=== PATIENT | female | born 1980 | race Caucasian/White ===

== ENCOUNTER 2019-11-26 09:30 | Inpatient (IN) | payer OTHER ==
[2019-11-19 12:14] VITALS: BMI 41.5
[~2019-11-26 09:30] MED LIST: BUPIVACAINE HCL/PF 0.25% (2.5MG/ML) 10 ML VIAL IJ ONE
[2019-11-26] MEDS ORDERED: ROCURONIUM BROMIDE 50 MG/5 ML SYRINGE ONE (14:11)
[2019-11-26] MEDS ORDERED: GLYCOPYRROLATE 0.2 MG/1 ML VIAL ONE (14:11)
[2019-11-26] MEDS ORDERED: fentaNYL CITRATE 250 MCG/5 ML VIAL ONE (14:11)
[2019-11-26] MEDS ORDERED: MIDAZOLAM HCL 2 MG/2 ML SINGLE DOSE VIAL ONE ×2 (14:11→14:12)
[2019-11-26] MEDS ORDERED: NEOSTIGMINE METHYLSULFATE 0.5 MG/ML - 10 ML MDV ONE ×2 (14:11→16:34)
[2019-11-26] MEDS ORDERED: BUPIVACAINE HCL/PF 0.5% (5 MG/ML) 30 ML VIAL IJ ONE (14:12)
[2019-11-26] MEDS ORDERED: BUPIVACAINE HCL/PF 2.5 MG/ML - 30 ML VIAL IJ ONE (14:12)
[2019-11-26] MEDS ORDERED: DESFLURANE GAS 240 ML BOTTLE IH ONE (15:31)
[2019-11-26] MEDS ORDERED: ONDANSETRON 4 MG/2 ML VIAL IVPUSH PRN (15:32)
[2019-11-26] MEDS ORDERED: ACETAMINOPHEN 1000 MG/100 ML VIAL (NON FORMULARY) IVPB ONE (15:32)
[2019-11-26] MEDS ORDERED: EPHEDRINE SULFATE/0.9% NACL/PF 50 MG/10 ML SYRINGE NR ONE (15:38)
[2019-11-26] MEDS ORDERED: LACTATED RINGERS SOLUTION 1,000 ML IV SCH (15:45)
[2019-11-26] MEDS ORDERED: HYDROmorphone HCL CARPU-JECT 1 MG/1 ML DISP.SYRIN IVPB PRN ×2 (16:38→16:39)
[2019-11-26] MEDS ORDERED: ACETAMINOPHEN INJECTION 100 ML IVPB ONE (16:39)
--- NOTE | 2019-11-26 16:44 | OP ---
Operative Note - Note: Operative Date: 11/26/19 Pre-Operative Diagnosis: Morbid Obesity. Sleep Apnea. Hypertension Operation: Laparoscopic Vertical Sleeve Gastrectomy. Wedge biopsy of left lobe of liver. Diagnostic Laparoscopy Findings: Greater curve sleeve gastrectomy performed with #[address] Wedge biopsy performed on enlarged left lobe of liver Post-Operative Diagnosis: Same as Pre-op (Hepatomegaly) Surgeon: Marcin Schafer Data Analysis Intern: Paulo Ricks Anesthesia: General Specimens Removed: Greater curve of stomach. Wedge biopsy of left lobe of liver Estimated Blood Loss (mls): 50 Operative Report Dictated: Yes
[2019-11-26] MEDS ORDERED: SODIUM CHLORIDE 1,000 ML IV SCH (16:45)
[2019-11-26] MEDS: FAMOTIDINE 20 MG/50 ML IVPB 20 MG/50 ML MG IVPB SCH ×2 (16:50→21:56)
[2019-11-26] MEDS ORDERED: METOPROLOL TARTRATE 5 MG/5 ML VIAL ONE (17:23)
[2019-11-26] MEDS ORDERED: ONDANSETRON 4 MG/2 ML VIAL ONE (17:42)
[2019-11-26] MEDS ORDERED: hydrALAZINE HCL 20 MG/ML VIAL ONE (17:43)
[2019-11-26 17:59] LABS: HEMATOCRIT 40.3 % (32.4-45.2); HEMOGLOBIN 13.5 GM/dl (10.7-15.3); MCH 30.2 pg (25.7-33.7); MCHC 33.5 g/dl (32.0-36.0); MEAN CELL VOLUME 90.1 fl (80-96); MEAN PLT VOLUME 8.8 fl (7.5-11.1); PLATELET COUNT 385 K/MM3 (134-434); RBC 4.48 M/mm3 (3.60-5.2); RDW 12.3 % (11.6-15.6); WHITE BLOOD COUNT 15.3 K/mm3 (4.0-10.8)
[2019-11-26] MEDS ORDERED: hydrALAZINE HCL 20 MG/ML VIAL IVPUSH SCH (18:00)
[2019-11-26 18:12] LABS: ALBUMIN 3.5 g/dl (3.4-5.0); BILIRUBIN,TOTAL 0.6 mg/dl (0.2-1); CALCIUM 8.5 mg/dl (8.5-10); CREATININE 0.9 mg/dl (0.55-1.3); POTASSIUM 3.9 mmol/L (3.5-5.1)
[2019-11-26] MEDS ORDERED: METOCLOPRAMIDE HCL INJECTION 10 MG/2 ML VIAL ONE (18:24)
[2019-11-26] MEDS: METOCLOPRAMIDE HCL INJECTION 10 MG/2 ML VIAL IVPUSH SCH ×2 (18:25→21:56)
[2019-11-27] MEDS: METOCLOPRAMIDE HCL INJECTION 10 MG/2 ML VIAL IVPUSH SCH ×2 (05:13→10:29)
[2019-11-27 07:53] LABS: HEMATOCRIT 41.5 % (32.4-45.2); HEMOGLOBIN 13.9 GM/dl (10.7-15.3); MCH 30.1 pg (25.7-33.7); MCHC 33.5 g/dl (32.0-36.0); MEAN CELL VOLUME 89.8 fl (80-96); MEAN PLT VOLUME 9.2 fl (7.5-11.1); PLATELET COUNT 415 K/MM3 (134-434); RBC 4.62 M/mm3 (3.60-5.2); WHITE BLOOD COUNT 14.1 K/mm3 (4.0-10.8)
[2019-11-27 08:09] LABS: ALBUMIN 3.8 g/dl (3.4-5.0); BILIRUBIN,TOTAL 0.8 mg/dl (0.2-1); CALCIUM 9.2 mg/dl (8.5-10); CREATININE 0.8 mg/dl (0.55-1.3); POTASSIUM 4.1 mmol/L (3.5-5.1); TOT PROT 7.4 g/dl (6.4-8.2)
--- NOTE | 2019-11-27 08:58 | DS ---
Physical Exam: SUBJECTIVE: Patient seen and examined OBJECTIVE: Vital Signs Temperature 98.7 F 11/27/19 06:00 Pulse Rate 89 11/27/19 06:00 Respiratory Rate 18 11/27/19 06:00 Blood Pressure 148/82 11/27/19 06:00 O2 Sat by Pulse Oximetry (%) 95 11/27/19 06:00 PHYSICAL EXAM GENERAL: The patient is awake, alert, and fully oriented, in no acute distress. HEAD: Normal with no signs of trauma. EYES: PERRL, extraocular movements intact, sclera anicteric, conjunctiva clear. ENT: Ears normal, nares patent, oropharynx clear without exudates, moist mucous membranes. NECK: Trachea midline, full range of motion, supple. LUNGS: breathing comfortably no accessory muscle use. ABDOMEN: Soft,mild diffuse tenderness, nondistended, incisions are clean no erythema, no guarding, no rebound, no hepatosplenomegaly, no masses. EXTREMITIES: warm, well-perfused, no edema. NEUROLOGICAL: Cranial nerves II through XII grossly intact. Normal speech, gait not observed. PSYCH: Normal mood, normal affect. SKIN: Warm, dry, normal turgor, no rashes or lesions noted. LABS CBC,CMP WBC 14.1 K/mm3 (4.0-10.8) H 11/27/19 07:20 RBC 4.62 M/mm3 (3.60-5.2) 11/27/19 07:20 Hgb 13.9 GM/dl (10.7-15.3) 11/27/19 07:20 Hct 41.5 % (32.4-45.2) 11/27/19 07:20 MCV 89.8 fl (80-96) 11/27/19 07:20 MCH 30.1 pg (25.7-33.7) 11/27/19 07:20 MCHC 33.5 g/dl (32.0-36.0) 11/27/19 07:20 RDW 12.0 % (11.6-15.6) 11/27/19 07:20 Plt Count 415 K/MM3 (134-434) 11/27/19 07:20 MPV 9.2 fl (7.5-11.1) 11/27/19 07:20 Sodium 134 mmol/L (136-145) L 11/27/19 07:20 Potassium 4.1 mmol/L (3.5-5.1) 11/27/19 07:20 Chloride 101 mmol/L (98-107) 11/27/19 07:20 Carbon Dioxide 25 mmol/L (21-32) 11/27/19 07:20 Anion Gap 8 MMOL/L (8-16) 11/27/19 07:20 BUN 8.0 mg/dl (7-18) 11/27/19 07:20 Creatinine 0.8 mg/dl (0.55-1.3) 11/27/19 07:20 Est GFR (CKD-EPI)AfAm 109.16 11/27/19 07:20 Est GFR (CKD-EPI)NonAf 94.18 11/27/19 07:20 Random Glucose 114 mg/dl (74-106) H 11/27/19 07:20 Calcium 9.2 mg/dl (8.5-10) 11/27/19 07:20 Total Bilirubin 0.8 mg/dl (0.2-1) 11/27/19 07:20 AST 34 U/L (15-37) 11/27/19 07:20 ALT 28 U/L (13-61) 11/27/19 07:20 Alkaline Phosphatase 47 U/L (45-117) 11/27/19 07:20 Total Protein 7.4 g/dl (6.4-8.2) 11/27/19 07:20 Albumin 3.8 g/dl (3.4-5.0) 11/27/19 07:20 HOSPITAL COURSE: Date of Admission:11/26/19 Date of Discharge: 11/27/19 HOSPITAL COURSE: The patient was admitted to the Med-Surg Unit after elective bariatric surgery. Now, s/p laparoscopic vertical sleeve gastrectomy. The day of surgery, the patient ambulated the hallways with assistance. The patient was monitored with remote tele/continuous pulse ox. Narcotic and non-narcotic pain management control was achieved with oral and IV pain control. Upper GI series was obtained the following morning and no leak, extravastion or gastric outlet obstruction. Started on a Bariatric Stage 1 diet and tolerated well. Mary Carmen-operative IV ABX were administered in addition to GI prophylaxis. DVT prophylaxis was achieved with SCDs and early ambulation. The discharge instructions and an oral pain management plan were reviewed with the patient. All questions answered. Above plan discussed with Dr. Schafer and agreed. Minutes to complete discharge: 20 Visit type - Case Type Case Type: Scheduled - Emergency Emergency Visit: No - New patient This patient is new to me today: Yes Date on this admission: 11/27/19 - Critical Care Critical Care patient: No
--- NOTE | 2019-11-27 09:29 | PN ---
Progress Note (short form) - Note Progress Note: ANESTHESIA POSTOP: 39 yo female, POD#1, s/p gastric sleeve Patient in bed. No complaints. Awaiting GI study. Pain adequately controlled. VSS, Afebrile Continue current care, encouraged IS and ambulation. No anesthetic complications.
[2019-11-27] MEDS: FAMOTIDINE 20 MG/50 ML IVPB 20 MG/50 ML MG IVPB SCH (10:00)
[2019-11-27] MEDS ORDERED: ENOXAPARIN NA (PORCINE) 40 MG/0.4 ML DISP.SYRIN SQ SCH ×2 (10:00)
[2019-11-27] MEDS ORDERED: oxyCODONE HCL 5 MG TABLET PO PRN (10:34)
[2019-11-27] MEDS ORDERED: SODIUM CHLORIDE 1,000 ML IV SCH (10:45)
--- NOTE | 2019-11-27 12:28 | PN ---
Progress Note (short form) - Note Progress Note: POD#1 Afebrile; VSS P-87-89 BP-148/82 Pt doing well Tolerating PO clear liquids- 3 oz po tid No N/V P/E- Abd- all incisions with band-aids clean, dry, no drainage WBC-14.1 (decreased) H/H-13.9/41.5 (no change) UGI- no leak, no obstruction P- D/C pt home PO clear liquids at home - 3 oz PO 4-5 times per day F/U in Bariatric office in 9 days
[2019-11-27 13:32] VITALS: BP 144/70; PULSE 63; TEMP 99.6
--- NOTE | 2019-11-27 15:44 | OP ---
DATE OF OPERATION: 11/26/2019 PREOPERATIVE DIAGNOSES: 1. Morbid obesity. 2. Sleep apnea. 3. Hypertension. POSTOPERATIVE DIAGNOSES: 1. Morbid obesity. 2. Sleep apnea. 3. Hypertension. 4. Hepatomegaly. PROCEDURE PERFORMED: 1. Laparoscopic vertical sleeve gastrectomy. 2. Wedge biopsy of the left lobe of the liver. 3. Diagnostic laparoscopy. OPERATING SURGEON: Marcin Schafer MD DAMAGED FREIGHT INSPECTOR: Paulo Ricks MD EXPECTED BLOOD LOSS: 50 mL. ANESTHESIA: General. OPERATIVE PROCEDURE: The patient was brought into the operating room. Placed on the OR table in the supine position. All precautions were taken initially including padding for the back and the feet, and Venodyne boots were placed on both lower extremities. At that point, the abdomen was prepped and draped in the usual manner. A Veress needle was placed in the left upper quadrant, and a pneumoperitoneum was established. Under direct vision with a camera, a No. 5 bladeless trocar was placed in the left upper quadrant, and through that trocar, a laparoscopic camera was placed. Under direct vision, a No. 15 bladeless trocar was placed in the midline in a supraumbilical position followed by a No. 5 bladeless trocar in the right upper quadrant and No. 5 bladeless trocar below the left costal margin. A Inessa liver retractor was then placed in the epigastrium to retract the left lobe of the liver. The patient was then placed in a 20-degree reverse Trendelenburg position by Anesthesia. The pylorus was noted on distal stomach, and 6 cm proximal to that was measured, and the greater curve was noted, and at this point, the greater curve was lifted up to the anterior abdominal wall by the operating surgeon as the research assistant professor surgeon retracted the gastrocolic ligament inferiorly. The LigaSure device was used to dissect the gastrocolic ligament and then the shorter gastric vessels off the greater curve of the stomach. This continued gradually night a superior and vertical direction until a final short gastric vessel between the superior pole of the spleen and the proximal fundus was divided. At this point, attention was directed back down to the greater curvature, which was 6 cm from the pylorus. Anesthesia now passed or advanced a No. 36 bougie, which was held along the lesser curve of the stomach. A series of karsten were now used to resect the greater curve of the stomach, and this started 6 cm proximal to pylorus. The first 2 karsten were 6 cm in length, and they were back load karsten along the bougie. This was followed by a series of purple load karsten also 6 cm in length and also hugging the bougie until a final staple was fired in the left upper quadrant. The greater curve was now completely detached from the lesser curve. It should be noted that prior to firing each staple, both the anterior and posterior tay were checked that they were equal, and in the area of the esophagogastric junction approximately 1 to 1-1/2 cm of serosa remained on the anterior and posterior surfaces. At this point, attention was directed to the left lobe of the liver, which was extremely enlarged and had to be positioned out of the field by the liver retractor. It was decided that because of its size, a biopsy would be performed. The LigaSure was now used to dissect a triangular-shaped piece of liver off the inferior edge of the left lobe. Once this was done, the specimen was sent off the field as a specimen to Pathology, and the parenchyma had some minor oozing, which was easily controlled with the electrocautery on the LigaSure. At this point, saline was placed around the staple line of the stomach, and Anesthesia inserted air into the bougie, which showed the entire stomach distended. No obstruction and no leaks were noted. The resected greater curve was now removed through the No. 15 trocar site, and the No. 15 trocar site was closed with Endo Close device to prevent internal hernia and to prevent bleeding. Under direct vision, all trocars were removed, and the pneumoperitoneum was released. All trocar sites received 0.25% Marcaine, were closed with 4-0 Biosyn in subcuticular fashion. The No. 15 midline trocar was first closed with 2-0 Vicryl in the subcutaneous tissue followed by 4-0 Biosyn in subcuticular fashion. Dressings were applied. The patient was awoken from anesthesia and transferred out of the operating room to the recovery room in stable condition. Zak [id number]
--- NOTE | 2019-11-28 07:10 | DS ---
DATE OF ADMISSION: 11/26/2019 DATE OF DISCHARGE: 11/27/2019 HISTORY OF PRESENT ILLNESS AND HOSPITAL COURSE: The patient is a 39-year-old woman with a history of morbid obesity for many years despite multiple attempts at dietary weight loss. She received nutritional, psychological, cardiac and pulmonary clearance prior to undergoing elective sleeve gastrectomy surgery. The patient was admitted to [facility] on November 26, 2019, where a laparoscopic vertical sleeve gastrectomy was performed. The details of the procedure are described in the postoperative note. Postoperatively, the patient was sent to the recovery room, where she was stabilized and then sent to the floor. She remained on the floor overnight, with telemetry monitoring, and her vital signs remained stable. She had no significant nausea or vomiting noted throughout the initial 24 hours. On the morning of November 27, 2019, she was brought to X-ray, where a Gastrografin swallow showed no leak and no obstruction. She returned to her room, where she tolerated 3 ounces of clear liquid well. The patient will be given full instructions for discharge and all questions were answered, including specifically answers related to her oral intake for the next 10 to 14 days. The patient is scheduled to follow up with the Bariatric Service in 9 days for further dietary recommendation or to call if any issues should arise. SUAD SOLOMON M.D. [id number] cc: YANELIS RODRÍGUEZ MD
[2019-11-28] MEDS ORDERED: metoPROLOL SUCCINATE 25 MG TAB.SR.24H (FP) PO SCH (10:00)
--- NOTE | 2019-11-30 17:33 | PATH ---
Surgical Pathology Report Patient Name: ANGE HALL Med. Rec. #: [id number] /Age/Gender: 1980 (Age: 39) / F Account: [id number] Location: [facility] MED-SURG Taken: 11/26/2019 Received: 11/26/2019 Reported: 11/30/2019 Physicians: Marcin Schafer M.D. Specimen(s) Received A: GREATER CURVATURE STOMACH B: LIVER BIOPSY Clinical History Morbid obesity Final Diagnosis A. STOMACH, GREATER CURVATURE, LAPAROSCOPIC VERTICAL SLEEVE GASTRECTOMY: PORTION OF STOMACH WITH MILD CHRONIC GASTRITIS. IMMUNOHISTOCHEMICAL STAIN FOR H. PYLORI IS NEGATIVE. B. LIVER, BIOPSY: LIVER PARENCHYMA WITH MILD PATCHY STEATOSIS (~5%). NO INCREASE IN IRON AND FIBROSIS ON PERFORMED SPECIAL STAINS (IRON AND TRICHROME). Immunohistochemical stain performed at [place], [place] ([id number]) and interpreted at [facility]. Positive and negative controls (internal if applicable) show appropriate results. Electronically Signed Mariely Arango M.D. Gross Description A. Received in formalin, labeled "greater curvature of stomach," is a 79 gram, 17.5 x 3.0 x 2.5 cm. portion of stomach with a stapled margin of resection. The serosa is pretty-florez with minimal attached fat. The mucosa is pretty-pink with normal folds. No mucosal masses are identified. Scrap Yard Worker sections are submitted in one cassette. B. Received in formalin labeled "liver biopsy," is a 2.4 x 1.0 x 0.5 cm pretty portion of soft tissue, consistent with a portion of liver. The specimen is bisected and entirely submitted in one cassette. /11/27/2019 saudi11/27/2019
== END 2019-11-27 13:32 | disposition home or self-care (01) | DRG 621 ==
LOC: FM/S 12:14
PROVIDERS: ADMIT Surgery; ATTEND Surgery
PROC: 0FB24ZX Excision of Left Lobe Liver, Percutaneous Endoscopic Approach, Diagnostic (ICD-10-PCS; 2019-11-26)
PROC: 0DB64Z3 Excision of Stomach, Percutaneous Endoscopic Approach, Vertical (ICD-10-PCS; principal; 2019-11-26 14:00)
DX: E66.01 Morbid (severe) obesity due to excess calories (principal); I10 Essential (primary) hypertension; R16.0 Hepatomegaly, not elsewhere classified; G47.30 Sleep apnea, unspecified; Z68.41 Body mass index [BMI] 40.0-44.9, adult
CPT/HCPCS: 36415; 74240-TC-FY; 80053; 84703; 85027; 88305-TC; 94760; J0131; Q9967